=== PATIENT | male | born 1940 | race Caucasian/White ===

== ENCOUNTER 2017-05-23 22:27 | Inpatient (IN) ==
[2017-05-23] MEDS ORDERED: 0.9 % Sodium Chloride 1,000 ML IVC ONE (22:37)
--- NOTE | 2017-05-23 22:39 | Emergency Department Note ---
Disposition Clinical Impression: Sepsis Qualifiers: Sepsis type: sepsis due to unspecified organism Qualified Code(s): A41.9 - Sepsis, unspecified organism UTI (urinary tract infection) Qualifiers: Urinary tract infection type: acute cystitis Hematuria presence: without hematuria Qualified Code(s): N30.00 - Acute cystitis without hematuria Pneumonia Qualifiers: Pneumonia type: due to unspecified organism Laterality: right Lung location: lower lobe of lung Qualified Code(s): J18.1 - Lobar pneumonia, unspecified organism Altered mental state Qualifiers: Altered mental status type: transient alteration of awareness Qualified Code(s) : R40.4 - Transient alteration of awareness Disposition: Admitted As Inpatient Condition: Good Altered Mental Status HPI - General Chief Complaint: ED Fever Stated Complaint: fever Time Seen by Provider: 05/23/17 22:30 Source: family, EMS Mode of arrival: EMS Limitations: altered mental status, physical limitation Nursing Notes Reviewed: Yes Vital Signs Reviewed: Yes - History of Present Illness HPI Narrative: Patient reportedly had been mainly sleeping for the last 2 days. He has awakens to eats what he gets most of his nutrition through tube feed. He has had less responsiveness since about 9:00 tonight and the squad was called to have him brought in for evaluation. 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 He has reports of had a fever that was described as low-grade. His states she did take her temperature 102.8 at 5:00 but they used other thermometer and had a temperature 100.5. He has not had cough, per shortness of breath, nausea or vomiting. He has not had any type of diarrhea and has had his usual mild constipation. He has not had any type of fall, injury or illness exposure. He is nonambulatory and is written with his right-sided paralysis. His was concerned that he might have pneumonia. From her description he might have had a pneumonia couple weeks ago for which she has been off antibiotics for 2-3 weeks. complaint: altered mental status, decreased responsiveness Onset (ago): day(s) (2) Timing confirmed by: spouse, family member Pain Severity: none Consistency of Symptoms: getting worse Context: recent fever Associated symptoms: Reports: fever, loss of appetite, malaise, weakness. Denies: chest pain, cough, diaphoresis, chills, headaches, nausea/vomiting, rash , seizure, shortness of breath, syncope, foul smelling urine, difficulty walking , diarrhea, incontinence - Related Data Home Medications Medication Instructions Recorded Confirmed Aspirin [Adult Low Dose Aspirin EC] 81 mg PO DAILY 01/04/16 05/23/17 Cholecalciferol (Vitamin D3) 5,000 unit PO DAILY 01/04/16 05/23/17 [Vitamin D3] Esomeprazole Magnesium [Nexium] 40 mg PO DAILY 01/04/16 05/23/17 Levothyroxine [Synthroid] 75 mcg PO DAILY 01/04/16 05/23/17 Lisinopril [Zestril] 20 mg PO DAILY 01/04/16 05/23/17 Loratadine [Claritin] 10 mg PO DAILY 01/04/16 08/18/16 Metoprolol [Lopressor] 100 mg PO BID 01/04/16 05/23/17 Phenytoin Sodium Extended 300 mg PO QAM 01/04/16 08/18/16 Polyethylene Glycol 3350 [MiraLAX 1 scoop PO DAILY 01/04/16 08/18/16 Powder Bulk 17.9 Oz] traMADol [Ultram] 50 mg PO TID 01/04/16 05/23/17 Atorvastatin [Lipitor] 40 mg PO HS 08/18/16 05/23/17 Folic Acid 1 mg PO DAILY 08/18/16 05/23/17 Nitroglycerin [Nitrostat] 0.4 mg SL PRN PRN 08/18/16 08/18/16 Rivaroxaban [Xarelto] 20 mg PO QAM 08/18/16 05/23/17 Reglan 5 mg PO HS 05/23/17 05/23/17 Allergies Allergy/AdvReac Type Severity Reaction Status Date / Time gabapentin AdvReac Anaphylaxis Verified 05/23/17 22:36 iodine AdvReac Anaphylaxis Verified 05/23/17 22:36 Megestrol AdvReac Anaphylaxis Verified 05/23/17 22:36 All systems ED: reviewed and negative except as stated. Past Medical History - Past Medical History Source: old records reviewed, obtained from family, nursing notes reviewed Medical history: Reports: arthritis, CVA (Nonverbal with right-sided deficits), seizures, thyroid disease Surgical history: Reports: orthopedic, other Psychiatric history: Reports: no psych history - Social History Smoking Status: Current every day smoker Smokeless Tobacco Status: No Alcohol use: Reports: none Drug use: Reports: none Physical Exam - General Limitations: altered mental status, physical limitation General appearance: lethargic (Patient staring straight ahead with irregular respirations.) - Head Head exam: atraumatic, normocephalic, normal inspection - Eye Eye exam: Present: PERRL. Absent: scleral icterus, conjunctival injection - ENT ENT exam: normal exam, normal oropharynx, other (Mucous membranes are mildly dry.) - Neck Neck exam: Present: normal inspection, trachea midline. Absent: meningismus, lymphadenopathy - Chest Chest inspection: Present: normal inspection, symmetric chest wall rise, other ( Irregular respiration with occasional pauses. His indicates that this is a typical pattern for him.) - Respiratory Respiratory exam: Present: normal lung sounds bilaterally. Absent: wheezes, prolonged expiratory phase - Cardiovascular Cardiovascular exam: Present: regular rate, normal rhythm, normal heart sounds. Absent: tachycardia - Abdominal Exam Abdominal exam: Present: soft, Non-Tender, normal bowel sounds, other (G-tube is in place.). Absent: tenderness, distention, guarding, rebound, rigidity - Extremities Exam Extremities exam: Present: normal inspection, normal capillary refill. Absent: tenderness, pedal edema - Expanded Lower Extremity Exam Neurovascular/Tendon exam: Present: normal capillary refill Gait: not tested/not observed - Neurological Exam Neurological exam: Absent: alert, oriented X3 - Psychiatric Psychiatric exam: Present: flat affect, other (Patient staring but becomes a little brighter in his eyes and eye opening with stimulation.) - Skin Skin exam: Present: warm, dry, intact, pallor. Absent: cyanosis, diaphoresis Course Course Narrative: 0030: Care is been discussed with the patient's family and with Dr. Campbell. Verbal orders are obtained for the patient's hospitalization. Vital Signs Temperature 97.0 F L 05/23/17 22:28 Pulse Rate 65 05/23/17 22:28 Respiratory Rate 14 05/23/17 22:28 Blood Pressure 144/75 05/23/17 22:28 O2 Sat by Pulse Oximetry 100 05/23/17 22:28 Temperature 100.2 F H 05/24/17 02:38 Pulse Rate 71 05/24/17 02:38 Respiratory Rate 14 05/24/17 02:38 Blood Pressure 161/60 05/24/17 02:38 O2 Sat by Pulse Oximetry 97 05/24/17 02:38 Oxygen Delivery Oxygen Delivery Room Air Altered Mental Status - Differential Diagnosis Likely: altered mental status, delirium, dementia, hypoglycemia, hyponatremia, sepsis - Lab Data Lab results reviewed: Yes I reviewed the patient's lab results. Result diagrams: 05/23/17 22:55 05/23/17 22:55 Lab Results 05/23/17 05/23/17 05/23/17 Range/Units 22:55 22:55 22:55 WBC 18.6 H (4.3-11.1) K/mcL RBC 4.53 (4.19-5.50) M/mcL Hgb 13.7 (12.9-16.9) g/dL Hct 39.8 (37.5-50.1) % MCV 87.9 (83.0-100.0) fL MCH 30.2 (28.0-33.3) pg MCHC 34.4 (31.6-35.5) g/dL RDW 14.4 (11.5-14.5) % Plt Count 270 (140-400) K/mcL MPV 9.8 (9.4-12.4) fL Immature Gran % 0.6 (0-4) % Seg Neutrophils % 83.0 % Lymphocytes % 7.7 % Monocytes % 8.3 % Eosinophils % 0.1 % Basophils % 0.3 % Neutrophils # 15.4 H (1.6-8.9) K/mcL Lymphocytes # 1.4 (0.6-4.6) K/mcL Monocytes # 1.5 H (0.0-1.3) K/mcL Eosinophils # 0.0 (0.0-0.6) K/mcL Basophils # 0.1 (0.0-0.2) K/mcL PT 18.4 H (9.4-12.1) Seconds INR 1.7 APTT 35.0 (26.0-36.0) Seconds Sodium 135 L (136-145) mEq/L Potassium 4.0 (3.5-4.5) mEq/L Chloride 101 (98-109) mEq/L Carbon Dioxide 21 (19-29) mEq/L BUN 17 (8-26) mg/dL Creatinine 1.12 (0.72-1.25) mg/dL Est GFR ( Amer) > 60 (> 60) Est GFR (Non-Af Amer) > 60 (> 60) BUN/Creatinine Ratio 15 (6-26) Glucose 133 H (70-99) mg/dL Calculated Osmolality 283 (280-300) Calcium 9.1 (8.6-10.8) mg/dL Total Bilirubin 0.6 (0.2-1.2) mg/dL Direct Bilirubin 0.4 (0.0-0.5) mg/dL Indirect Bilirubin 0.2 (0.0-1.2) mg/dL AST 19 (5-34) Units/L ALT 15 (0-55) Units/L Alkaline Phosphatase 106 (38-126) Units/L Ammonia (18-72) mcmol/L Troponin I (0-0.03) ng/mL Serum Total Protein 7.2 (6.0-8.3) g/dL Albumin 2.7 L (3.5-5.0) g/dL Globulin 4.5 H (2.4-3.5) g/dL Albumin/Globulin Ratio 0.6 L (1.1-2.2) Urine Color (Yellow) Urine Clarity (Clear) Urine pH (5.0-8.0) pH Units Ur Specific [place] (1.010-1.025) Urine Protein (Neg-Trace) mg/dL Urine Glucose (UA) (Normal) mg/dL Urine Ketones (Negative) mg/dL Urine Blood (Negative) Urine Nitrite (Negative) Urine Bilirubin (Negative) Urine Urobilinogen (Normal) mg/dL Ur Leukocyte Esterase (Negative) Urine Microscopic RBC (0-3) per hpf Urine Microscopic WBC (0-3) per hpf Urine Bacteria (None-Few) per hpf Ur Culture Indicated? (NO) Urine Opiates Screen (Hjfvop=441) ng/mL Ur Oxycodone Screen (Cutoff= 100) ng/mL Ur Barbiturates Screen (Fajywk=790) ng/mL Phenytoin (10-20) mcg/mL Ur Phencyclidine Scrn (Cutoff=25) ng/mL Ur Amphetamines Screen (Vdsywu=0572) ng/mL U Benzodiazepines Scrn (Gpbdmw=069) ng/mL Urine Cocaine Screen (Cutoff= 300) ng/mL U Marijuana (THC) Screen (Cutoff = 50) ng/mL 08/03/17 08/03/17 08/03/17 Range/Units 22:55 22:55 22:55 WBC (4.3-11.1) K/mcL RBC (4.19-5.50) M/mcL Hgb (12.9-16.9) g/dL Hct (37.5-50.1) % MCV (83.0-100.0) fL MCH (28.0-33.3) pg MCHC (31.6-35.5) g/dL RDW (11.5-14.5) % Plt Count (140-400) K/mcL MPV (9.4-12.4) fL Immature Gran % (0-4) % Seg Neutrophils % % Lymphocytes % % Monocytes % % Eosinophils % % Basophils % % Neutrophils # (1.6-8.9) K/mcL Lymphocytes # (0.6-4.6) K/mcL Monocytes # (0.0-1.3) K/mcL Eosinophils # (0.0-0.6) K/mcL Basophils # (0.0-0.2) K/mcL PT (9.4-12.1) Seconds INR APTT (26.0-36.0) Seconds Sodium (136-145) mEq/L Potassium (3.5-4.5) mEq/L Chloride (98-109) mEq/L Carbon Dioxide (19-29) mEq/L BUN (8-26) mg/dL Creatinine (0.72-1.25) mg/dL Est GFR ( Amer) (> 60) Est GFR (Non-Af Amer) (> 60) BUN/Creatinine Ratio (6-26) Glucose (70-99) mg/dL Calculated Osmolality (280-300) Calcium (8.6-10.8) mg/dL Total Bilirubin (0.2-1.2) mg/dL Direct Bilirubin (0.0-0.5) mg/dL Indirect Bilirubin (0.0-1.2) mg/dL AST (5-34) Units/L ALT (0-55) Units/L Alkaline Phosphatase (38-126) Units/L Ammonia 29 (18-72) mcmol/L Troponin I 0.02 (0-0.03) ng/mL Serum Total Protein (6.0-8.3) g/dL Albumin (3.5-5.0) g/dL Globulin (2.4-3.5) g/dL Albumin/Globulin Ratio (1.1-2.2) Urine Color (Yellow) Urine Clarity (Clear) Urine pH (5.0-8.0) pH Units Ur Specific [place] (1.010-1.025) Urine Protein (Neg-Trace) mg/dL Urine Glucose (UA) (Normal) mg/dL Urine Ketones (Negative) mg/dL Urine Blood (Negative) Urine Nitrite (Negative) Urine Bilirubin (Negative) Urine Urobilinogen (Normal) mg/dL Ur Leukocyte Esterase (Negative) Urine Microscopic RBC (0-3) per hpf Urine Microscopic WBC (0-3) per hpf Urine Bacteria (None-Few) per hpf Ur Culture Indicated? (NO) Urine Opiates Screen (Ttxkzd=385) ng/mL Ur Oxycodone Screen (Cutoff= 100) ng/mL Ur Barbiturates Screen (Yiwlch=721) ng/mL Phenytoin 17.4 (10-20) mcg/mL Ur Phencyclidine Scrn (Cutoff=25) ng/mL Ur Amphetamines Screen (Mllpdd=1677) ng/mL U Benzodiazepines Scrn (Mepxmp=330) ng/mL Urine Cocaine Screen (Cutoff= 300) ng/mL U Marijuana (THC) Screen (Cutoff = 50) ng/mL 05/23/17 05/23/17 Range/Units 23:16 23:16 WBC (4.3-11.1) K/mcL RBC (4.19-5.50) M/mcL Hgb (12.9-16.9) g/dL Hct (37.5-50.1) % MCV (83.0-100.0) fL MCH (28.0-33.3) pg MCHC (31.6-35.5) g/dL RDW (11.5-14.5) % Plt Count (140-400) K/mcL MPV (9.4-12.4) fL Immature Gran % (0-4) % Seg Neutrophils % % Lymphocytes % % Monocytes % % Eosinophils % % Basophils % % Neutrophils # (1.6-8.9) K/mcL Lymphocytes # (0.6-4.6) K/mcL Monocytes # (0.0-1.3) K/mcL Eosinophils # (0.0-0.6) K/mcL Basophils # (0.0-0.2) K/mcL PT (9.4-12.1) Seconds INR APTT (26.0-36.0) Seconds Sodium (136-145) mEq/L Potassium (3.5-4.5) mEq/L Chloride (98-109) mEq/L Carbon Dioxide (19-29) mEq/L BUN (8-26) mg/dL Creatinine (0.72-1.25) mg/dL Est GFR ( Amer) (> 60) Est GFR (Non-Af Amer) (> 60) BUN/Creatinine Ratio (6-26) Glucose (70-99) mg/dL Calculated Osmolality (280-300) Calcium (8.6-10.8) mg/dL Total Bilirubin (0.2-1.2) mg/dL Direct Bilirubin (0.0-0.5) mg/dL Indirect Bilirubin (0.0-1.2) mg/dL AST (5-34) Units/L ALT (0-55) Units/L Alkaline Phosphatase (38-126) Units/L Ammonia (18-72) mcmol/L Troponin I (0-0.03) ng/mL Serum Total Protein (6.0-8.3) g/dL Albumin (3.5-5.0) g/dL Globulin (2.4-3.5) g/dL Albumin/Globulin Ratio (1.1-2.2) Urine Color Dark Yellow (Yellow) Urine Clarity Clear (Clear) Urine pH 5.5 (5.0-8.0) pH Units Ur Specific [place] 1.020 (1.010-1.025) Urine Protein >=300 H (Neg-Trace) mg/dL Urine Glucose (UA) Normal (Normal) mg/dL Urine Ketones Trace H (Negative) mg/dL Urine Blood Large H (Negative) Urine Nitrite Negative (Negative) Urine Bilirubin Small H (Negative) Urine Urobilinogen Normal (Normal) mg/dL Ur Leukocyte Esterase Small H (Negative) Urine Microscopic RBC 30-50 H (0-3) per hpf Urine Microscopic WBC 50-100 H (0-3) per hpf Urine Bacteria Moderate H (None-Few) per hpf Ur Culture Indicated? YES A (NO) Urine Opiates Screen Negative (Bcttla=184) ng/mL Ur Oxycodone Screen Negative (Cutoff= 100) ng/mL Ur Barbiturates Screen Negative (Ldszsy=795) ng/mL Phenytoin (10-20) mcg/mL Ur Phencyclidine Scrn Negative (Cutoff=25) ng/mL Ur Amphetamines Screen Negative (Nridsw=0353) ng/mL U Benzodiazepines Scrn Negative (Fbjvar=669) ng/mL Urine Cocaine Screen Negative (Cutoff= 300) ng/mL U Marijuana (THC) Screen Negative (Cutoff = 50) ng/mL - Radiology Data Radiology results reviewed: Yes I reviewed the patient's radiology results. Chest x-ray has lateral ectasis or infiltrate in the right base. No other acute abnormality is seen. This is on my interpretation. CT head demonstrates a large left-sided chronic ischemic injury without other acute abnormalities seen. This is on my interpretation. Radiologist impression: 1. No acute intracranial abnormality 2. Stable large volume left MCA and small volume right MCA territorial encephalomalacia. 3. Stable severe chronic white matter microvascular ischemic changes. 4. Unchanged left mastoid effusion. Impressions Chest X-Ray 05/23/17 22:37 IMPRESSION: New small layering pleural effusion with right base opacity may reflect atelectasis or pneumonia given patient's history of fever. D/ / Percy Gunter MD / Percy Gunter MD Interpreting Provider: Percy Gunter MD - EKG Data EKG attestation: Yes I reviewed and interpreted this EKG. EKG shows normal: sinus rhythm, axis, intervals, QRS complexes [place]/QRS: RBBB (Incomplete) T wave inversions: v1, v2, v3, v4, v5 Interpretation: no acute changes, nonspecific ST-T wave changes TPA Checklist - LKW: 3-4.5 hrs Add. Warnings/Precautions Patient/family understanding: The patient/family members have been counseled and understood the risk, benefit , and alternatives of treatment. Critical Care Time Critical Care Time: Yes Total Critical Care Time: 60 Attestation: As this patient did present with signs and symptoms of potential life- threatening illness requiring my urgent intervention, total critical care time in this patient's care has been 60 minutes, not withstanding separately reportable procedures.
[2017-05-23 23:06] LABS: Basophils # 0.1 K/mcL (0.0-0.2); Basophils % 0.3 %; Eosinophils % 0.1 %; Hematocrit 39.8 % (37.5-50.1); Hemoglobin 13.7 g/dL (12.9-16.9); Immature Granulocytes % 0.6 % (0-4); Lymphocytes # 1.4 K/mcL (0.6-4.6); Lymphocytes % 7.7 %; Mean Corpuscular HGB Conc 34.4 g/dL (31.6-35.5); Mean Corpuscular Hemoglobin 30.2 pg (28.0-33.3); Mean Corpuscular Volume 87.9 fL (83.0-100.0); Mean Platelet Volume 9.8 fL (9.4-12.4); Monocytes % 8.3 %; Neutrophils # 15.4 K/mcL (1.6-8.9); Platelet Count 270 K/mcL (140-400); Red Blood Count 4.53 M/mcL (4.19-5.50); Red Cell Distribution Width 14.4 % (11.5-14.5)
[2017-05-23 23:12] LABS: INR 1.7; Monocytes # 1.5 K/mcL (0.0-1.3); Prothrombin Time 18.4 Seconds (9.4-12.1)
[2017-05-23 23:24] LABS: Alanine Aminotransferase 15 Units/L (0-55); Albumin 2.7 g/dL (3.5-5.0); Albumin/Globulin Ratio 0.6 (1.1-2.2); Alkaline Phosphatase 106 Units/L (38-126); Aspartate Amino Transferase 19 Units/L (5-34); BUN/Creatinine Ratio 15 (6-26); Bilirubin,Direct 0.4 mg/dL (0.0-0.5); Bilirubin,Indirect 0.2 mg/dL (0.0-1.2); Bilirubin,Total 0.6 mg/dL (0.2-1.2); Blood Urea Nitrogen 17 mg/dL (8-26); Calcium 9.1 mg/dL (8.6-10.8); Carbon Dioxide 21 mEq/L (19-29); Chloride 101 mEq/L (98-109); Globulin 4.5 g/dL (2.4-3.5); Glucose 133 mg/dL (70-99); Osmolality,Calculated 283 (280-300); Sodium 135 mEq/L (136-145); Total Protein 7.2 g/dL (6.0-8.3); eGFR For African Americans > 60 (> 60); eGFR For Non-African Americans > 60 (> 60)
[2017-05-23 23:30] LABS: Bilirubin,Urine Small (Negative); Blood,Urine Large (Negative); Clarity,Urine Clear (Clear); Glucose,Urine (UA) Normal (Normal); Ketones,Urine Trace mg/dL (Negative); Leukocyte Esterase,Urine Small (Negative); Nitrite,Urine Negative (Negative); PH,Urine 5.5 pH Units (5.0-8.0); Protein,Urine >=300 mg/dL (Neg-Trace); Urobilinogen,Urine Normal (Normal)
[2017-05-23 23:37] LABS: Amphetamine Screen,Urine Negative ng/mL (Cutoff=1000); Barbiturate Screen,Urine Negative ng/mL (Cutoff=200); Benzodiazepines Screen,Urine Negative ng/mL (Cutoff=200); Cannabinoid Screen,Urine Negative ng/mL (Cutoff = 50); Cocaine Screen,Urine Negative ng/mL (Cutoff= 300); Opiate Screen,Urine Negative ng/mL (Cutoff=300); Phencyclidine Screen,Urine Negative ng/mL (Cutoff=25)
[2017-05-23 23:42] LABS: Color,Urine Dark Yellow (Yellow)
[2017-05-23 23:43] LABS: Bacteria,Urine Moderate per hpf (None-Few); RBC,Urine 30-50 per hpf (0-3); WBC,Urine 50-100 per hpf (0-3)
[2017-05-24] MEDS ORDERED: Piperacillin/Tazobactam 3.375 GM in D5% in Water (Mini-Bag+) 100 ML IVPB ONE ×2 (00:08→01:19)
[2017-05-24] MEDS ORDERED: Vancomycin 1,000 MG in D5% in Water 250 ML IVPB ONE (00:08)
[2017-05-24] MEDS ORDERED: Ondansetron 4 MG/2 ML VIAL IVP PRN (01:19)
[2017-05-24] MEDS ORDERED: Naloxone 0.4 MG/ML INJ IVP PRN (01:19)
[2017-05-24] MEDS: 0.9 % Sodium Chloride 1,000 ML IVC SCH ×3 (02:49→15:54)
[2017-05-24] MEDS: *HR* Rivaroxaban 10 MG TABLET PO SCH (08:29)
[2017-05-24] MEDS: Lisinopril 20 MG TABLET PO SCH (08:29)
[2017-05-24] MEDS: Aspirin Enteric Coated 81 MG Tablet PO SCH (08:30)
[2017-05-24] MEDS: Pantoprazole 40 MG VIAL IVP SCH (08:33)
[2017-05-24] MEDS ORDERED: Folic Acid 1 MG TABLET PO SCH (09:00)
[2017-05-24] MEDS ORDERED: Vancomycin 1,250 MG in D5% in Water 250 ML IVPB SCH (09:00)
--- NOTE | 2017-05-24 10:00 | Internal Med History&Physical ---
Date of Encounter: 05/24/17 Time of Encounter: 09:35 Assessment and Plan (1) UTI (urinary tract infection) Current visit: Yes Status: Acute He has been started on Zosyn and vancomycin. Lactobacillus will be ordered. Further workup will be done as needed. Qualifiers: Urinary tract infection type: acute cystitis Hematuria presence: without hematuria Qualified Code(s): N30.00 - Acute cystitis without hematuria (2) Altered mental state Current visit: Yes Status: Acute I do not know his baseline mental status. Attempt to contact his son was unsuccessful. We will treat for infection and monitor mental status. Qualifiers: Altered mental status type: stupor Qualified Code(s): R40.1 - Stupor (3) Right hemiplegia Current visit: Yes Status: Acute Head CT emergency room showed no acute changes. Continue Xarelto and aspirin. (4) Hypothyroidism Current visit: Yes Status: Chronic TSH was normal at 4.132 on 12/17/2016. Continue present dose Synthroid Qualifiers: Hypothyroidism type: unspecified Qualified Code(s): E03.9 - Hypothyroidism , unspecified (5) Hypertension Current visit: Yes Status: Chronic Continue lisinopril and metoprolol. Qualifiers: Hypertension type: essential hypertension Qualified Code(s): I10 - Essential (primary) hypertension Internal Medicine - H&P: HPI Chief complaint: Lethargy Admitted From: Home Plans for Post Hospital Care: Home History of present illness: Mr. Merchant is a 77 year old male was brought to the emergency room after his reportedly noted he had decreased level of consciousness over the last 2 days. 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 He had fever 102.8 earlier in the day per his 's report. Temperature was 97.0 on presentation to emergency room but WBC was 18.6 K with left shift present on differential. He was evaluated and admitted to [facility] floor for ongoing care needs. Past Med Surg Social Fam HX - Past Medical History Medical history: arthritis, CVA, seizures, thyroid disease Psychiatric history: no psych history - Past Surgical History Surgical History: orthopedic, other - Social History Smoking Status: Current every day smoker Smokeless Tobacco Status: No Alcohol use: none Drug use: none Internal Medicine - H&P: Meds Aspirin [Adult Low Dose Aspirin EC] 81 mg PO DAILY 01/04/16 [History] Cholecalciferol (Vitamin D3) [Vitamin D3] 5,000 unit PO DAILY 01/04/16 [History] Esomeprazole Magnesium [Nexium] 40 mg PO DAILY 01/04/16 [History] Levothyroxine [Synthroid] 75 mcg PO DAILY 01/04/16 [History] Lisinopril [Zestril] 20 mg PO DAILY 01/04/16 [History] Loratadine [Claritin] 10 mg PO DAILY 01/04/16 [History] Metoprolol [Lopressor] 100 mg PO BID 01/04/16 [History] Phenytoin Sodium Extended 300 mg PO QAM 01/04/16 [History] Polyethylene Glycol 3350 [MiraLAX Powder Bulk 17.9 Oz] 1 scoop PO DAILY [History] traMADol [Ultram] 50 mg PO TID 01/04/16 [History] Atorvastatin [Lipitor] 40 mg PO HS 08/18/16 [History] Folic Acid 1 mg PO DAILY 08/18/16 [History] Nitroglycerin [Nitrostat] 0.4 mg SL PRN PRN 08/18/16 [History] Rivaroxaban [Xarelto] 20 mg PO QAM 08/18/16 [History] Reglan 5 mg PO HS 05/23/17 [History] Allergies gabapentin Adverse Reaction (Verified 05/23/17 22:36) Anaphylaxis iodine Adverse Reaction (Verified 05/23/17 22:36) Anaphylaxis Megestrol Adverse Reaction (Verified 05/23/17 22:36) Anaphylaxis All Systems PM: A 10-system review of systems was performed and is negative for pertinent findings except as documented above in the HPI. Review of systems: Unobtainable from the patient. Emergency room record reports diagnoses arthritis, CVA with right sophie-plegic, seizures, and thyroid disease not otherwise specified. Nursing staff reports he has had a right leg DVT and is on Xarelto for this. - Constitutional Vitals: Temp Pulse Resp BP Pulse Ox 98.0 F 69 16 153/79 99 05/24/17 06:40 05/24/17 06:40 05/24/17 06:40 05/24/17 06:40 05/24/17 06:40 Exam: Gen.: He is a well-developed well-nourished male lying in bed who does not respond to voice or light touch HEENT: Head is atraumatic and normal cephalic. Eyes: His gaze is disconjugate. There is mild conjunctival erythema. Mouth: He does not open his mouth for examination. Neck: There is no thyromegaly or adenopathy noted. Heart: Regular without murmurs gallops or ectopics Lungs: No wheezes or crackles are heard anteriorly or laterally Abdomen: G-tube is in place in the epigastric area. The G-tube site is unremarkable. Abdomen is soft and nontender. No masses or guarding are noted. Extremities: He is wearing VESNA hose which I did not remove. There is no pitting edema on his lower legs or dorsum of the feet. He has minimal DJD changes of his hands. Neurologic: Mental status: He is obtunded and does not respond to voice or light touch. Motor: He does not move his right side. The left hand moves minimally spontaneously. The right arm is flaccid on passive range of motion. The left arm has some muscle tone on PROM. No further neurologic testing is attempted. Skin: Warm and dry Internal Med - H&P Results - Labs CBC & Chem 7: 05/23/17 22:55 05/23/17 22:55 - VTE Documentation of Mechanical Device: Graduated compression elastic hosiery
--- NOTE | 2017-05-24 11:44 | Electrocardiograph Report ---
[address] [address] Test Date: 2017-05-23 Pat Name: Niels Merchant Department: [id number] Room: [facility] Gender: M Evaluation Manager: [id number] : 1940 Requested By: Jabari Garcia Order Number: [id number] Reading MD: Vazquez Almonte Measurements Intervals [place] Rate: 61 P: 100 [place]: 195 QRS: -11 QRSD: 112 T: 95 QT: 423 QTc: 427 Interpretive Statements SINUS RHYTHM INCOMPLETE RIGHT BUNDLE BRANCH BLOCK ST DEVIATION AND MODERATE T-WAVE ABNORMALITY, CONSIDER ANTERIOR ISCHEMIA Electronically Signed On 05-24-2017 11:42:27 EDT by Vazquez Almonte
[2017-05-24] MEDS: Piperacillin/Tazobactam 3.375 GM in D5% in Water (Mini-Bag+) 100 ML IVPB SCH ×2 (13:53→21:20)
[2017-05-24] MEDS ORDERED: Vancomycin 1,000 MG in D5% in Water 250 ML IVPB SCH (18:00)
[2017-05-24] MEDS ORDERED: Vancomycin 1,500 MG in D5% in Water 250 ML IVPB SCH (18:00)
[2017-05-24] MEDS: Lactobacillus 1 EACH CAP.SPRINK PO SCH (21:19)
[2017-05-25] MEDS: 0.9 % Sodium Chloride 1,000 ML IVC SCH (02:53)
[2017-05-25 04:27] LABS: Basophils % 0.5 %; Eosinophils # 0.3 K/mcL (0.0-0.6); Hematocrit 40.1 % (37.5-50.1); Hemoglobin 13.5 g/dL (12.9-16.9); Immature Granulocytes % 0.6 % (0-4); Lymphocytes # 1.3 K/mcL (0.6-4.6); Lymphocytes % 15.7 %; Mean Corpuscular HGB Conc 33.7 g/dL (31.6-35.5); Mean Corpuscular Hemoglobin 30.5 pg (28.0-33.3); Mean Corpuscular Volume 90.7 fL (83.0-100.0); Mean Platelet Volume 9.9 fL (9.4-12.4); Monocytes # 0.7 K/mcL (0.0-1.3); Monocytes % 7.6 %; Neutrophils # 6.1 K/mcL (1.6-8.9); Platelet Count 185 K/mcL (140-400); Red Blood Count 4.42 M/mcL (4.19-5.50); Red Cell Distribution Width 14.6 % (11.5-14.5); Segmented Neutrophils % 71.6 %
[2017-05-25 04:42] LABS: BUN/Creatinine Ratio 17 (6-26); Blood Urea Nitrogen 15 mg/dL (8-26); Calcium 8.7 mg/dL (8.6-10.8); Carbon Dioxide 14 mEq/L (19-29); Chloride 108 mEq/L (98-109); Glucose 97 mg/dL (70-99); Osmolality,Calculated 283 (280-300); Potassium 3.2 mEq/L (3.5-4.5); Sodium 136 mEq/L (136-145); eGFR For African Americans > 60 (> 60); eGFR For Non-African Americans > 60 (> 60)
[2017-05-25] MEDS: Piperacillin/Tazobactam 3.375 GM in D5% in Water (Mini-Bag+) 100 ML IVPB SCH ×3 (05:31→20:13)
[2017-05-25] MEDS ORDERED: Aminoglycoside Consult 1 EACH MC ONE (08:00)
[2017-05-25] MEDS ORDERED: Vancomycin 1,000 MG in D5% in Water 250 ML IVPB SCH (08:00)
[2017-05-25] MEDS: Aspirin Enteric Coated 81 MG Tablet PO SCH (08:45)
[2017-05-25] MEDS: *HR* Rivaroxaban 10 MG TABLET PO SCH (08:46)
[2017-05-25] MEDS: Pantoprazole 40 MG VIAL IVP SCH (09:03)
[2017-05-25] MEDS: Lisinopril 20 MG TABLET PO SCH (09:03)
[2017-05-25] MEDS: Lactobacillus 1 EACH CAP.SPRINK PO SCH ×2 (09:03→20:12)
--- NOTE | 2017-05-25 14:33 | Internal Med Progress Note ---
Date of Encounter: 05/25/17 Time of Encounter: 14:25 - Assessment and plan (1) UTI (urinary tract infection) Current Visit: Yes Status: Acute Assessment and plan: May 25. Final urine culture and sensitivity is pending. Will discontinue vancomycin but continue Zosyn for now with lactobacillus. Anticipate discharge home tomorrow. Qualifiers: Urinary tract infection type: acute cystitis Hematuria presence: without hematuria Qualified Code(s): N30.00 - Acute cystitis without hematuria (2) Altered mental state Current Visit: Yes Status: Resolved Assessment and plan: May 25. Resolved. Continue present management Qualifiers: Altered mental status type: stupor Qualified Code(s): R40.1 - Stupor (3) Right hemiplegia Current Visit: Yes Status: Acute Assessment and plan: May 25. Continue Xarelto and aspirin (4) Hypothyroidism Current Visit: Yes Status: Chronic Assessment and plan: May 25. Continue Synthroid Qualifiers: Hypothyroidism type: unspecified Qualified Code(s): E03.9 - Hypothyroidism , unspecified (5) Hypertension Current Visit: Yes Status: Chronic Assessment and plan: May 25. Continue lisinopril and metoprolol. Qualifiers: Hypertension type: essential hypertension Qualified Code(s): I10 - Essential (primary) hypertension - Subjective Interval history: May 25. He has no new complaints and feels better. - Constitutional Vitals: Temp Pulse Resp BP Pulse Ox 98.6 F 66 16 128/80 99 05/25/17 10:45 05/25/17 10:45 05/25/17 10:45 05/25/17 10:45 05/25/17 10:45 Exam: He is resting comfortably in bed. He is awake with eyes open. He nods appropriately and makes an attempt to speak but has significant dysarthria/ dysphasia. I reviewed his medications and lab results Internal Medicine: Result - Labs CBC & Chem 7: 05/25/17 04:10 05/25/17 04:10 Labs: Short CBC 05/25/17 Range/Units 04:10 WBC 8.5 D (4.3-11.1) K/mcL Hgb 13.5 (12.9-16.9) g/dL Hct 40.1 (37.5-50.1) % Plt Count 185 (140-400) K/mcL Neutrophils # 6.1 (1.6-8.9) K/mcL BMP 05/25/17 04:10 Sodium 136 Potassium 3.2 L Chloride 108 Carbon Dioxide 14 L BUN 15 Creatinine 0.88 Glucose 97 Calcium 8.7 - ABG Interpretation ABG results: PT/INR, D-dimer PT 18.4 Seconds (9.4-12.1) H 05/23/17 22:55 - VTE Documentation of Mechanical Device: Graduated compression elastic hosiery Consult Discharge Plan - Plan Referrals: Daryn Valdez MD [Primary Care Provider] - 1 week
[2017-05-25] MEDS ORDERED: Potassium Chloride Elixir 20 MEQ/15 ML UDC GTUBE ONE (14:35)
[2017-05-26] MEDS: Piperacillin/Tazobactam 3.375 GM in D5% in Water (Mini-Bag+) 100 ML IVPB SCH (06:34)
[2017-05-26 07:25] VITALS: BP 126/72
[2017-05-26] MEDS: Lactobacillus 1 EACH CAP.SPRINK PO SCH (08:34)
[2017-05-26] MEDS: *HR* Rivaroxaban 10 MG TABLET PO SCH (08:34)
[2017-05-26] MEDS: Lisinopril 20 MG TABLET PO SCH (08:34)
[2017-05-26] MEDS: Aspirin Enteric Coated 81 MG Tablet PO SCH (08:34)
--- NOTE | 2017-05-26 09:35 | Discharge Summary ---
Date of Encounter: 05/26/17 Time of Encounter: 09:20 - Discharge Diagnosis (1) UTI (urinary tract infection) Priority: Primary Status: Acute Qualifiers: Urinary tract infection type: acute cystitis Hematuria presence: without hematuria Qualified Code(s): N30.00 - Acute cystitis without hematuria (2) Altered mental state Priority: Secondary Status: Resolved Qualifiers: Altered mental status type: stupor Qualified Code(s): R40.1 - Stupor (3) Right hemiplegia Priority: Secondary Status: Chronic (4) Hypothyroidism Priority: Secondary Status: Chronic Qualifiers: Hypothyroidism type: unspecified Qualified Code(s): E03.9 - Hypothyroidism , unspecified (5) Hypertension Priority: Secondary Status: Chronic Qualifiers: Hypertension type: essential hypertension Qualified Code(s): I10 - Essential (primary) hypertension - Discharge Medications Prescriptions: Lactobacillus [Culturelle] 1 each PO BID #10 Nitrofurantoin (BID) [Macrobid] 100 mg PO BID #10 capsule Home Medications: Aspirin [Adult Low Dose Aspirin EC] 81 mg PO DAILY 01/04/16 [History] Cholecalciferol (Vitamin D3) [Vitamin D3] 5,000 unit PO DAILY 01/04/16 [History] Esomeprazole Magnesium [Nexium] 40 mg PO DAILY 01/04/16 [History] Levothyroxine [Synthroid] 75 mcg PO DAILY 01/04/16 [History] Lisinopril [Zestril] 20 mg PO DAILY 01/04/16 [History] Metoprolol [Lopressor] 100 mg PO BID 01/04/16 [History] Phenytoin Sodium Extended 300 mg PO QAM 01/04/16 [History] Polyethylene Glycol 3350 [MiraLAX Powder Bulk 17.9 Oz] 1 scoop PO DAILY [History] traMADol [Ultram] 50 mg PO TID 01/04/16 [History] Atorvastatin [Lipitor] 40 mg PO HS 08/18/16 [History] Folic Acid 1 mg PO DAILY 08/18/16 [History] Nitroglycerin [Nitrostat] 0.4 mg SL PRN PRN 08/18/16 [History] Rivaroxaban [Xarelto] 20 mg PO QAM 08/18/16 [History] Reglan 5 mg PO HS 05/23/17 [History] Lactobacillus [Culturelle] 1 each PO BID #10 05/26/17 [Rx] Loratadine [Claritin] 10 mg PO DAILY PRN #0 05/26/17 [Rx] Nitrofurantoin (BID) [Macrobid] 100 mg PO BID #10 capsule 05/26/17 [Rx] Allergies/Adverse Reactions: Allergies gabapentin Adverse Reaction (Verified 05/23/17 22:36) Anaphylaxis iodine Adverse Reaction (Verified 05/23/17 22:36) Anaphylaxis Megestrol Adverse Reaction (Verified 05/23/17 22:36) Anaphylaxis Date of admission: 05/24/17 01:09 Primary care physician: Daryn Valdez MD - Patient Status Disposition: Home Health Service Condition: Good Functional capacity at discharge: wheelchair bound Overall status at discharge: patient is progressing back to baseline - Discharge Instructions Follow Up With: Daryn Valdez MD [Primary Care Provider] - 1 week - Diet and Activity Activity: resume usual activities as tolerated Diet: advance to your usual diet Hospital course: Mr. Merchant is a 77 year old male who was brought to the emergency room after his reportedly noted he had decreased level of consciousness over the last 2 days. 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 He had fever 102.8 earlier in the day per his 's report. Temperature was 97.0 on presentation to emergency room but WBC was 18.6 K with left shift present on differential. He was evaluated and admitted to [facility] floor for ongoing care needs. Initial orders were written by the emergency room physician. I saw him on May 24 and performed the history and physical. He was started empirically on Zosyn and vancomycin. Lactobacillus was also given. He had clinical improvement with WBC normalizing to 8.5K and resolution of the left shift by May 25. Urine culture returned showing Escherichia coli. He will be discharged home on Macrobid 100 mg twice a day for 5 days with Lactobacillus. His mental status returned to baseline by the second hospital day. He will follow with his PCP Dr. Daryn Valdez within 1 week. - Time Spent with Patient Total time spent providing and/or coordinating discharge services: - Constitutional Vitals: Temp Pulse Resp BP Pulse Ox 98.3 F 108 19 126/72 98 05/26/17 07:00 05/26/17 07:00 05/26/17 07:00 05/26/17 07:00 05/26/17 07:00 - VTE Documentation of Mechanical Device: Graduated compression elastic hosiery
--- NOTE | 2017-05-26 09:40 | Physician Discharge Referral ---
Home Health/Hosp Referral Info Transfer to: Home Health Attending Provider: Adrian Provider in Charge Post Discharge: PCP (Daryn Valdez M.D.) - Diagnosis (1) UTI (urinary tract infection) Priority: Primary Status: Acute (2) Altered mental state Priority: Secondary Status: Resolved (3) Right hemiplegia Priority: Secondary Status: Chronic (4) Hypothyroidism Priority: Secondary Status: Chronic (5) Hypertension Priority: Secondary Status: Chronic - Respiratory Orders Smoking Cessation: Smoking cessation has been advised. For more information, call the [place] Tobacco Quit Line at 3-948-FVZC-NOW. - Diet/Nutrition Diet/Nutrition Orders: Regular - Activity Activity Orders: Chair - Services Needed Following services are medically necessary services: Nursing, Home Health Aide, Physical Therapy, Occupational Therapy - Transfer Medications Prescriptions: Lactobacillus [Culturelle] 1 each PO BID #10 Nitrofurantoin (BID) [Macrobid] 100 mg PO BID #10 capsule Home Medications: Aspirin [Adult Low Dose Aspirin EC] 81 mg PO DAILY 01/04/16 [History] Cholecalciferol (Vitamin D3) [Vitamin D3] 5,000 unit PO DAILY 01/04/16 [History] Esomeprazole Magnesium [Nexium] 40 mg PO DAILY 01/04/16 [History] Levothyroxine [Synthroid] 75 mcg PO DAILY 01/04/16 [History] Lisinopril [Zestril] 20 mg PO DAILY 01/04/16 [History] Metoprolol [Lopressor] 100 mg PO BID 01/04/16 [History] Phenytoin Sodium Extended 300 mg PO QAM 01/04/16 [History] Polyethylene Glycol 3350 [MiraLAX Powder Bulk 17.9 Oz] 1 scoop PO DAILY [History] traMADol [Ultram] 50 mg PO TID 01/04/16 [History] Atorvastatin [Lipitor] 40 mg PO HS 08/18/16 [History] Folic Acid 1 mg PO DAILY 08/18/16 [History] Nitroglycerin [Nitrostat] 0.4 mg SL PRN PRN 08/18/16 [History] Rivaroxaban [Xarelto] 20 mg PO QAM 08/18/16 [History] Reglan 5 mg PO HS 05/23/17 [History] Lactobacillus [Culturelle] 1 each PO BID #10 08/06/17 [Rx] Loratadine [Claritin] 10 mg PO DAILY PRN #0 05/26/17 [Rx] Nitrofurantoin (BID) [Macrobid] 100 mg PO BID #10 capsule 05/26/17 [Rx] Allergies/Adverse Reactions: Allergies gabapentin Adverse Reaction (Verified 05/23/17 22:36) Anaphylaxis iodine Adverse Reaction (Verified 05/23/17 22:36) Anaphylaxis Megestrol Adverse Reaction (Verified 05/23/17 22:36) Anaphylaxis Certification: Further, I certify that my clinical findings support that this patient is homebound (i.e. absences from home require considerable and taxing effort and are for medical reasons or confucianist services or infrequently or short duration when for other reasons) because: Homebound Reason: Leaving home requires considerable and taxing effort due to condition (CVA with right hemiplegia) Attestation: My signature below is to certify that this patient is under my care and that I, or nurse practitioner, or a physician's assistant director of security working with me, has a face-to -face encounter with this patient.
== END 2017-05-26 10:35 | disposition home health service (06) | DRG 690 ==
LOC: EMEROOPIK 22:27 → INPPIK 22:27
PROVIDERS: ADMIT Internal Medicine; ATTEND Internal Medicine

== ENCOUNTER 2017-10-29 14:03 | Inpatient (IN) ==
[2017-10-29] MEDS ORDERED: 0.9 % Sodium Chloride 1,000 ML IVC ONE (14:06)
--- NOTE | 2017-10-29 14:10 | Emergency Department Note ---
Disposition Clinical Impression: UTI (urinary tract infection) Qualifiers: Urinary tract infection type: acute cystitis Hematuria presence: without hematuria Qualified Code(s): N30.00 - Acute cystitis without hematuria Altered mental status Qualifiers: Altered mental status type: somnolence Qualified Code(s): R40.0 - Somnolence Disposition: Admitted As Inpatient Condition: Fair Fever HPI - General Chief Complaint: ED General Medical Stated Complaint: GENERALIZED WEAKNESS, FEVER LAST NIGHT Time Seen by Provider: 10/29/17 14:05 Source: family, EMS Mode of arrival: EMS Limitations: physical limitation Nursing Notes Reviewed: Yes Vital Signs Reviewed: Yes - History of Present Illness HPI Narrative: The patient had been diagnosed as a left lower lobe pneumonia 1-2 weeks ago and has completed a course of antibiotics. He had been tested for the flu that was negative. He has continued with some shortness of breath and a fever last night to 103. Visiting nurse came today and she advised he should be seen by the family doctor. They tried to contact the transport squad to bring him to an appointment for 4 PM this afternoon but none were available. His states that they, therefore, called 911 for him to be brought here. The patient is able to shake his head yes or no to questions but otherwise is chronically nonverbal. states that he really has not been answering any questions in the last day and that he has been weak and congested. She states he really much slept all day yesterday and today. He has not been having nausea , vomiting, diarrhea. He has not had other ill exposures in the family. They have not noted any increased extremity swelling or redness. He has finished his course of antibiotics but has no other change in medicines. For EMS his oxygen was 96% on room air, and IV was established and he was started on 3 L by nasal cannula for transport. Pt Subjective Complaint: fever, malaise, weakness Onset (ago): day(s) (2) Maximum Temperature Reported: 103 F Temperature Source: oral Context: recent antibiotic use Associated symptoms: Reports: chills, cough, dyspnea, altered mental status. Denies: rigors, myalgias, headache, rhinorrhea, nasal congestion, sore throat, stiff neck, chest pain, abdominal pain, nausea, vomiting, diarrhea, dysuria, rash, night sweats, weight loss Improves with: acetaminophen Worsens with: nothing Treatments prior to arrival fever: acetaminophen, other healthcare encounter for this problem - Related Data Home Medications Medication Instructions Recorded Confirmed Aspirin [Adult Low Dose Aspirin EC] 81 mg PO DAILY 01/04/16 10/29/17 Cholecalciferol (Vitamin D3) 5,000 unit PO DAILY 01/04/16 10/29/17 [Vitamin D3] Esomeprazole Magnesium [Nexium] 40 mg PO DAILY 01/04/16 10/29/17 Levothyroxine [Synthroid] 75 mcg PO DAILY 01/04/16 10/29/17 Lisinopril [Zestril] 20 mg PO DAILY 01/04/16 10/29/17 Metoprolol [Lopressor] 100 mg PO BID 01/04/16 10/29/17 Phenytoin Sodium Extended 300 mg PO QAM 01/04/16 10/29/17 Polyethylene Glycol 3350 [MiraLAX 1 scoop PO DAILY PRN 01/04/16 10/29/17 Powder Bulk 17.9 Oz] traMADol [Ultram] 50 mg PO BID 01/04/16 10/29/17 Atorvastatin [Lipitor] 40 mg PO HS 08/18/16 10/29/17 Folic Acid 1 mg PO DAILY 08/18/16 10/29/17 Nitroglycerin [Nitrostat] 0.4 mg SL PRN PRN 08/18/16 10/29/17 Rivaroxaban [Xarelto] 20 mg PO QAM 08/18/16 10/29/17 Reglan 5 mg PO HS 05/23/17 10/29/17 Allergies Allergy/AdvReac Type Severity Reaction Status Date / Time gabapentin AdvReac Anaphylaxis Verified 05/23/17 22:36 iodine AdvReac Anaphylaxis Verified 05/23/17 22:36 Megestrol AdvReac Anaphylaxis Verified 05/23/17 22:36 All systems ED: reviewed and negative except as stated. Fever PMH - Past Medical History Medical history: Reports: arthritis, CVA, seizures, thyroid disease Surgical history: Reports: orthopedic, other Psychiatric history: Reports: no psych history - Social History Smoking Status: Current every day smoker Alcohol use: Reports: none Drug use: Reports: none Physical Exam - General Limitations: physical limitation General appearance: in no apparent distress - Head Head exam: atraumatic, normocephalic, normal inspection - Eye Eye exam: Present: normal appearance, PERRL, EOMI. Absent: scleral icterus, conjunctival injection - ENT ENT exam: normal exam, normal oropharynx, mucous membranes moist - Neck Neck exam: Present: normal inspection, full ROM, trachea midline. Absent: meningismus, lymphadenopathy - Chest Chest inspection: Present: normal inspection, symmetric chest wall rise - Respiratory Respiratory exam: Present: normal lung sounds bilaterally. Absent: respiratory distress, wheezes, prolonged expiratory phase - Cardiovascular Cardiovascular exam: Present: regular rate, normal rhythm, normal heart sounds. Absent: tachycardia - Abdominal Exam Abdominal exam: Present: soft, Non-Tender, normal bowel sounds. Absent: tenderness, distention, guarding, rebound, rigidity - Extremities Exam Extremities exam: Present: normal inspection, normal capillary refill. Absent: tenderness, pedal edema, calf tenderness - Expanded Lower Extremity Exam Neurovascular/Tendon exam: Present: normal capillary refill, motor deficit ( Chronic right sided deficits.) Gait: not tested/not observed - Neurological Exam Neurological exam: Absent: alert, oriented X3 - Psychiatric Psychiatric exam: Present: flat affect. Absent: agitated, anxious - Skin Skin exam: Present: warm, dry, intact, normal color. Absent: cyanosis, diaphoresis, pallor Course Course Narrative: 1620: All testing has been discussed with the patient and family. I recommended continue IV fluids, IV antibiotics and observation with regard to his mental status and weakness. A page has been placed to Dr. Campbell to discuss inpatient treatment. 1645: Dr. Campbell has accepted this patient in observation status. Verbal orders have been obtained for his observation. Vital Signs Temperature 98.5 F 10/29/17 14:18 Pulse Rate 64 10/29/17 14:18 Respiratory Rate 16 10/29/17 14:18 Blood Pressure 147/71 10/29/17 14:18 O2 Sat by Pulse Oximetry 100 10/29/17 14:18 Temperature 98.7 F 10/29/17 23:59 Pulse Rate 63 10/29/17 23:59 Respiratory Rate 18 10/29/17 23:59 Blood Pressure 134/69 10/29/17 23:59 O2 Sat by Pulse Oximetry 98 10/29/17 23:59 Oxygen Delivery Oxygen Delivery Nasal Cannula Fever - Lab Data Lab results reviewed: Yes I reviewed the patient's lab results. Result diagrams: 10/29/17 14:30 10/29/17 14:30 Lab Results 10/29/17 10/29/17 10/29/17 Range/Units 14:30 14:30 14:30 WBC 6.1 (4.3-11.1) K/mcL RBC 4.22 (4.19-5.50) M/mcL Hgb 12.7 L (12.9-16.9) g/dL Hct 37.5 (37.5-50.1) % MCV 88.9 (83.0-100.0) fL MCH 30.1 (28.0-33.3) pg MCHC 33.9 (31.6-35.5) g/dL RDW 14.5 (11.5-14.5) % Plt Count 210 (140-400) K/mcL MPV 10.0 (9.4-12.4) fL Immature Gran % 0.3 (0-4) % Seg Neutrophils % 72.8 % Lymphocytes % 12.3 % Monocytes % 11.3 % Eosinophils % 2.8 % Basophils % 0.5 % Neutrophils # 4.5 (1.6-8.9) K/mcL Lymphocytes # 0.8 (0.6-4.6) K/mcL Monocytes # 0.7 (0.0-1.3) K/mcL Eosinophils # 0.2 (0.0-0.6) K/mcL Basophils # 0.0 (0.0-0.2) K/mcL PT 13.8 H (9.4-12.1) Seconds INR 1.3 APTT 31.0 (26.0-36.0) Seconds Sample Site ABG pH (7.32-7.45) pH Units ABG pCO2 (35-45) mmHg ABG pO2 (85-104) mmHg ABG HCO3 (21-27) mEq/L ABG Total CO2 (20-26) mEq/L ABG O2 Saturation (95-98) % ABG Base Excess (-2 to 3) mEq/L Mariano Test O2 Delivery Device Inspired O2 (1-15=lpm [id number]=%) Sodium 135 L (136-145) mEq/L Potassium 4.0 (3.5-4.5) mEq/L Chloride 103 (98-109) mEq/L Carbon Dioxide 24 (19-29) mEq/L BUN 15 (8-26) mg/dL Creatinine 1.02 (0.72-1.25) mg/dL Est GFR ( Amer) > 60 (> 60) Est GFR (Non-Af Amer) > 60 (> 60) BUN/Creatinine Ratio 15 (6-26) Glucose 124 H (70-99) mg/dL Calculated Osmolality 282 (280-300) Lactic Acid (0.5-2.2) mmol/L Calcium 8.5 L (8.6-10.8) mg/dL Phosphorus 2.8 (2.3-4.7) mg/dL Magnesium 1.8 (1.6-2.6) mg/dL Total Bilirubin 0.3 (0.2-1.2) mg/dL Direct Bilirubin 0.2 (0.0-0.5) mg/dL Indirect Bilirubin 0.1 (0.0-1.2) mg/dL AST 23 (5-34) Units/L ALT 19 (0-55) Units/L Alkaline Phosphatase 79 (38-126) Units/L Troponin I (0-0.03) ng/mL Serum Total Protein 6.5 (6.0-8.3) g/dL Albumin 2.4 L (3.5-5.0) g/dL Globulin 4.1 H (2.4-3.5) g/dL Albumin/Globulin Ratio 0.6 L (1.1-2.2) Urine Color (Yellow) Urine Clarity (Clear) Urine pH (5.0-8.0) pH Units Ur Specific [place] (1.010-1.025) Urine Protein (Neg-Trace) mg/dL Urine Glucose (UA) (Normal) mg/dL Urine Ketones (Negative) mg/dL Urine Blood (Negative) Urine Nitrite (Negative) Urine Bilirubin (Negative) Urine Urobilinogen (Normal) mg/dL Ur Leukocyte Esterase (Negative) Urine Microscopic RBC (0-3) per hpf Urine Microscopic WBC (0-3) per hpf Ur Squamous Epith Cells (None-Few) per lpf Urine Bacteria (None-Few) per hpf Hyaline Casts (None-Few) per lpf Ur Culture Indicated? (NO) Phenytoin (10.0-20.0) mcg/mL 10/29/17 10/29/17 10/29/17 Range/Units 14:30 14:30 14:30 WBC (4.3-11.1) K/mcL RBC (4.19-5.50) M/mcL Hgb (12.9-16.9) g/dL Hct (37.5-50.1) % MCV (83.0-100.0) fL MCH (28.0-33.3) pg MCHC (31.6-35.5) g/dL RDW (11.5-14.5) % Plt Count (140-400) K/mcL MPV (9.4-12.4) fL Immature Gran % (0-4) % Seg Neutrophils % % Lymphocytes % % Monocytes % % Eosinophils % % Basophils % % Neutrophils # (1.6-8.9) K/mcL Lymphocytes # (0.6-4.6) K/mcL Monocytes # (0.0-1.3) K/mcL Eosinophils # (0.0-0.6) K/mcL Basophils # (0.0-0.2) K/mcL PT (9.4-12.1) Seconds INR APTT (26.0-36.0) Seconds Sample Site ABG pH (7.32-7.45) pH Units ABG pCO2 (35-45) mmHg ABG pO2 (85-104) mmHg ABG HCO3 (21-27) mEq/L ABG Total CO2 (20-26) mEq/L ABG O2 Saturation (95-98) % ABG Base Excess (-2 to 3) mEq/L Mariano Test O2 Delivery Device Inspired O2 (1-15=lpm [id number]=%) Sodium (136-145) mEq/L Potassium (3.5-4.5) mEq/L Chloride (98-109) mEq/L Carbon Dioxide (19-29) mEq/L BUN (8-26) mg/dL Creatinine (0.72-1.25) mg/dL Est GFR ( Amer) (> 60) Est GFR (Non-Af Amer) (> 60) BUN/Creatinine Ratio (6-26) Glucose (70-99) mg/dL Calculated Osmolality (280-300) Lactic Acid 1.4 (0.5-2.2) mmol/L Calcium (8.6-10.8) mg/dL Phosphorus (2.3-4.7) mg/dL Magnesium (1.6-2.6) mg/dL Total Bilirubin (0.2-1.2) mg/dL Direct Bilirubin (0.0-0.5) mg/dL Indirect Bilirubin (0.0-1.2) mg/dL AST (5-34) Units/L ALT (0-55) Units/L Alkaline Phosphatase (38-126) Units/L Troponin I 0.03 (0-0.03) ng/mL Serum Total Protein (6.0-8.3) g/dL Albumin (3.5-5.0) g/dL Globulin (2.4-3.5) g/dL Albumin/Globulin Ratio (1.1-2.2) Urine Color (Yellow) Urine Clarity (Clear) Urine pH (5.0-8.0) pH Units Ur Specific [place] (1.010-1.025) Urine Protein (Neg-Trace) mg/dL Urine Glucose (UA) (Normal) mg/dL Urine Ketones (Negative) mg/dL Urine Blood (Negative) Urine Nitrite (Negative) Urine Bilirubin (Negative) Urine Urobilinogen (Normal) mg/dL Ur Leukocyte Esterase (Negative) Urine Microscopic RBC (0-3) per hpf Urine Microscopic WBC (0-3) per hpf Ur Squamous Epith Cells (None-Few) per lpf Urine Bacteria (None-Few) per hpf Hyaline Casts (None-Few) per lpf Ur Culture Indicated? (NO) Phenytoin 13.7 (10.0-20.0) mcg/mL 10/29/17 10/29/17 Range/Units 14:46 15:25 WBC (4.3-11.1) K/mcL RBC (4.19-5.50) M/mcL Hgb (12.9-16.9) g/dL Hct (37.5-50.1) % MCV (83.0-100.0) fL MCH (28.0-33.3) pg MCHC (31.6-35.5) g/dL RDW (11.5-14.5) % Plt Count (140-400) K/mcL MPV (9.4-12.4) fL Immature Gran % (0-4) % Seg Neutrophils % % Lymphocytes % % Monocytes % % Eosinophils % % Basophils % % Neutrophils # (1.6-8.9) K/mcL Lymphocytes # (0.6-4.6) K/mcL Monocytes # (0.0-1.3) K/mcL Eosinophils # (0.0-0.6) K/mcL Basophils # (0.0-0.2) K/mcL PT (9.4-12.1) Seconds INR APTT (26.0-36.0) Seconds Sample Site L Radial ABG pH 7.41 (7.32-7.45) pH Units ABG pCO2 36 (35-45) mmHg ABG pO2 99 (85-104) mmHg ABG HCO3 23 (21-27) mEq/L ABG Total CO2 24 (20-26) mEq/L ABG O2 Saturation 98 (95-98) % ABG Base Excess -1 (-2 to 3) mEq/L Mariano Test N/A O2 Delivery Device Cannula Inspired O2 3.0 (1-15=lpm [id number]=%) Sodium (136-145) mEq/L Potassium (3.5-4.5) mEq/L Chloride (98-109) mEq/L Carbon Dioxide (19-29) mEq/L BUN (8-26) mg/dL Creatinine (0.72-1.25) mg/dL Est GFR ( Amer) (> 60) Est GFR (Non-Af Amer) (> 60) BUN/Creatinine Ratio (6-26) Glucose (70-99) mg/dL Calculated Osmolality (280-300) Lactic Acid (0.5-2.2) mmol/L Calcium (8.6-10.8) mg/dL Phosphorus (2.3-4.7) mg/dL Magnesium (1.6-2.6) mg/dL Total Bilirubin (0.2-1.2) mg/dL Direct Bilirubin (0.0-0.5) mg/dL Indirect Bilirubin (0.0-1.2) mg/dL AST (5-34) Units/L ALT (0-55) Units/L Alkaline Phosphatase (38-126) Units/L Troponin I (0-0.03) ng/mL Serum Total Protein (6.0-8.3) g/dL Albumin (3.5-5.0) g/dL Globulin (2.4-3.5) g/dL Albumin/Globulin Ratio (1.1-2.2) Urine Color Yellow (Yellow) Urine Clarity Cloudy A (Clear) Urine pH 6.5 (5.0-8.0) pH Units Ur Specific [place] 1.015 (1.010-1.025) Urine Protein 100 H (Neg-Trace) mg/dL Urine Glucose (UA) Normal (Normal) mg/dL Urine Ketones Negative (Negative) mg/dL Urine Blood Trace-intact H (Negative) Urine Nitrite Positive A (Negative) Urine Bilirubin Negative (Negative) Urine Urobilinogen Normal (Normal) mg/dL Ur Leukocyte Esterase Negative (Negative) Urine Microscopic RBC 3-5 H (0-3) per hpf Urine Microscopic WBC 3-5 H (0-3) per hpf Ur Squamous Epith Cells None Seen (None-Few) per lpf Urine Bacteria Many H (None-Few) per hpf Hyaline Casts Few (None-Few) per lpf Ur Culture Indicated? YES A (NO) Phenytoin (10.0-20.0) mcg/mL - Radiology Data Radiology results reviewed: Yes I reviewed the patient's radiology results. Impressions Chest X-Ray 10/29/17 14:07 IMPRESSION: Stable mild right pleural effusion and basilar atelectasis versus a pneumonia. D/ / 10/29/2017 15:34:16 Patrick Acevedo MD / isis Interpreting Provider: Patrick Acevedo MD Head CT 10/29/17 14:09 IMPRESSION: 1. No acute intracranial abnormality. 2. Redemonstration of extensive chronic small vessel ischemic disease and large remote left MCA territory infarct. D/ / 10/29/2017 15:35:16 Patrick Acevedo MD / Rachael Jimenez Interpreting Provider: Patrick Acevedo MD - EKG Data EKG attestation: Yes I reviewed and interpreted this EKG. EKG shows normal: sinus rhythm, axis, intervals [place]/QRS: RBBB (Incomplete) T wave inversions noted in: v1, v2, v3, v4 Interpretation: nonspecific ST-T wave changes
[2017-10-29 14:42] LABS: Basophils % 0.5 %; Eosinophils # 0.2 K/mcL (0.0-0.6); Eosinophils % 2.8 %; Hematocrit 37.5 % (37.5-50.1); Hemoglobin 12.7 g/dL (12.9-16.9); Immature Granulocytes % 0.3 % (0-4); Lymphocytes # 0.8 K/mcL (0.6-4.6); Lymphocytes % 12.3 %; Mean Corpuscular HGB Conc 33.9 g/dL (31.6-35.5); Mean Corpuscular Hemoglobin 30.1 pg (28.0-33.3); Mean Corpuscular Volume 88.9 fL (83.0-100.0); Monocytes # 0.7 K/mcL (0.0-1.3); Monocytes % 11.3 %; Neutrophils # 4.5 K/mcL (1.6-8.9); Platelet Count 210 K/mcL (140-400); Red Blood Count 4.22 M/mcL (4.19-5.50); Red Cell Distribution Width 14.5 % (11.5-14.5); Segmented Neutrophils % 72.8 %
[2017-10-29 14:44] LABS: INR 1.3; Prothrombin Time 13.8 Seconds (9.4-12.1)
[2017-10-29 14:49] LABS: ABG Base Excess -1 mEq/L (-2 to 3); ABG HCO3 23 mEq/L (21-27); ABG Oxygen Saturation 98 % (95-98); ABG PCO2 36 mmHg (35-45); ABG PH 7.41 pH Units (7.32-7.45); ABG PO2 99 mmHg (85-104); ABG TCO2 24 mEq/L (20-26)
[2017-10-29 14:59] LABS: Alanine Aminotransferase 19 Units/L (0-55); Albumin 2.4 g/dL (3.5-5.0); Albumin/Globulin Ratio 0.6 (1.1-2.2); Alkaline Phosphatase 79 Units/L (38-126); Aspartate Amino Transferase 23 Units/L (5-34); BUN/Creatinine Ratio 15 (6-26); Bilirubin,Direct 0.2 mg/dL (0.0-0.5); Bilirubin,Indirect 0.1 mg/dL (0.0-1.2); Bilirubin,Total 0.3 mg/dL (0.2-1.2); Blood Urea Nitrogen 15 mg/dL (8-26); Calcium 8.5 mg/dL (8.6-10.8); Carbon Dioxide 24 mEq/L (19-29); Chloride 103 mEq/L (98-109); Globulin 4.1 g/dL (2.4-3.5); Glucose 124 mg/dL (70-99); Magnesium 1.8 mg/dL (1.6-2.6); Osmolality,Calculated 282 (280-300); Phosphorous 2.8 mg/dL (2.3-4.7); Sodium 135 mEq/L (136-145); Total Protein 6.5 g/dL (6.0-8.3); eGFR For African Americans > 60 (> 60); eGFR For Non-African Americans > 60 (> 60)
[2017-10-29 15:50] LABS: Bilirubin,Urine Negative (Negative); Blood,Urine Trace-intact (Negative); Clarity,Urine Cloudy (Clear); Color,Urine Yellow (Yellow); Glucose,Urine (UA) Normal (Normal); Ketones,Urine Negative (Negative); Leukocyte Esterase,Urine Negative (Negative); Nitrite,Urine Positive (Negative); PH,Urine 6.5 pH Units (5.0-8.0); Protein,Urine 100 mg/dL (Neg-Trace); Specific Gravity,Urine 1.015 (1.010-1.025); Urobilinogen,Urine Normal (Normal)
[2017-10-29 15:57] LABS: Bacteria,Urine Many per hpf (None-Few); Hyaline Casts,Urine Few per lpf (None-Few); Squamous Epithelial Cell,Urine None Seen per lpf (None-Few)
[2017-10-29] MEDS ORDERED: cefTRIAXone 1,000 MG in Water for inj. (sterile) 10 ML IVP ONE (16:20)
[2017-10-29] MEDS ORDERED: 0.9 % Sodium Chloride 1,000 ML IVC SCH (16:30)
[2017-10-29] MEDS ORDERED: Naloxone 0.4 MG/ML INJ IVP PRN (18:05)
[2017-10-29] MEDS ORDERED: Ondansetron 4 MG/2 ML VIAL IVP PRN (18:05)
[2017-10-29] MEDS ORDERED: Nitroglycerin 0.4 MG TAB.SUBL SL PRN (18:05)
[2017-10-29] MEDS ORDERED: MOM Conc 10 ML UD.LIQ PO PRN (18:05)
--- NOTE | 2017-10-29 19:14 | Internal Med History&Physical ---
Date of Encounter: 10/29/17 Time of Encounter: 18:55 Assessment and Plan (1) Altered mental status Current visit: Yes Status: Acute Uncertain what his baseline is. Started on Rocephin and IV fluids in emergency room. We will reassess and repeat labs in a.m. Qualifiers: Altered mental status type: somnolence Qualified Code(s): R40.0 - Somnolence (2) Hypothyroidism Current visit: No Status: Chronic TSH was normal at 4.132 on 12/17/2016. In view of weight loss will recheck in a.m. Qualifiers: Hypothyroidism type: unspecified Qualified Code(s): E03.9 - Hypothyroidism , unspecified (3) Hypertension Current visit: No Status: Chronic Continue lisinopril. Qualifiers: Hypertension type: essential hypertension Qualified Code(s): I10 - Essential (primary) hypertension Internal Medicine - H&P: HPI Chief complaint: Fever and altered mental status Admitted From: Emergency Dept Plans for Post Hospital Care: Home History of present illness: Mr. Merchant is a 77 year old male who was brought to emergency room after having a reported fever of 103 last night. Per emergency room records, his reported he had been increasingly weak and congested over the past 24 hours. He is nonverbal because of past CVA. He was evaluated in emergency room and admitted to [facility] floor for ongoing care needs. He could not offer any reliable history. Hospitalized last [facility] May 2017 with diagnoses of UTI. Past Med Surg Social Fam HX - Past Medical History Medical history: arthritis, CVA, seizures, thyroid disease Psychiatric history: no psych history - Past Surgical History Surgical History: orthopedic, other - Social History Smoking Status: Current every day smoker Smokeless Tobacco Status: No Alcohol use: none Drug use: none Internal Medicine - H&P: Meds Aspirin [Adult Low Dose Aspirin EC] 81 mg PO DAILY 01/04/16 [History] Cholecalciferol (Vitamin D3) [Vitamin D3] 5,000 unit PO DAILY 01/04/16 [History] Esomeprazole Magnesium [Nexium] 40 mg PO DAILY 01/04/16 [History] Levothyroxine [Synthroid] 75 mcg PO DAILY 01/04/16 [History] Lisinopril [Zestril] 20 mg PO DAILY 01/04/16 [History] Metoprolol [Lopressor] 100 mg PO BID 01/04/16 [History] Phenytoin Sodium Extended 300 mg PO QAM 01/04/16 [History] Polyethylene Glycol 3350 [MiraLAX Powder Bulk 17.9 Oz] 1 scoop PO DAILY PRN [History] traMADol [Ultram] 50 mg PO BID 01/04/16 [History] Atorvastatin [Lipitor] 40 mg PO HS 08/18/16 [History] Folic Acid 1 mg PO DAILY 08/18/16 [History] Nitroglycerin [Nitrostat] 0.4 mg SL PRN PRN 08/18/16 [History] Rivaroxaban [Xarelto] 20 mg PO QAM 08/18/16 [History] Reglan 5 mg PO HS 05/23/17 [History] 3 Allergy/AdvReac Type Severity Reaction Status Date / Time gabapentin AdvReac Anaphylaxis Verified 05/23/17 22:36 iodine AdvReac Anaphylaxis Verified 05/23/17 22:36 Megestrol AdvReac Anaphylaxis Verified 05/23/17 22:36 All Systems PM: A 10-system review of systems was performed and is negative for pertinent findings except as documented above in the HPI. Review of systems: Obtainable from the patient. His weight has decreased from 68.931 kg May 2017 to 61.235 kg on admission now. Available records showed diagnosis of right leg DVT for which he takes Xarelto. He also has hypothyroidism, past left hemisphere CVA with right hemiparesis, and seizures. - Constitutional Vitals: Temp Pulse Resp BP Pulse Ox 98.5 F 62 16 171/87 100 10/29/17 14:18 10/29/17 16:44 10/29/17 16:44 10/29/17 16:44 10/29/17 16:01 Exam: Gen.: He is a well-developed well-nourished male resting comfortably in bed who appears in no severe distress HEENT: Head is atraumatic and normocephalic. Eyes: EOMI. There is no scleral icterus. Mouth: Mucosa is moist Neck: There is no thyromegaly or adenopathy noted Heart: Regular without murmurs gallops or ectopics Lungs: Has diminished breath sounds diffusely. No wheezes or crackles are heard. Abdomen: Soft and nontender. No masses or guarding are noted. Extremities: He has pallor and equivocal cyanosis of his nailbeds. There is no pitting edema. Dorsalis pedis and posterior tibial pulses are trace palpable bilaterally. Neurologic: mental status: he is awake and makes no attempt to speak. He follows a few commands. Cranial nerves: His facial movements are minimal. His gaze is conjugate. EOMI. He does not protrude his tongue. Motor: He does not move spontaneously. He has significant stiffness on attempted passive range of motion on his right arm. His left arm shows minimal stiffness on PROM. He is not moving much spontaneously. No further neurologic testing is attempted. Skin: Warm and dry Internal Med - H&P Results - Labs CBC & Chem 7: 10/29/17 14:30 10/29/17 14:30
[2017-10-29] MEDS: traMADol 50 MG TABLET PO SCH (20:29)
[2017-10-29] MEDS: 0.9 % Sodium Chloride 1,000 ML IVC SCH (20:31)
[2017-10-30] MEDS: 0.9 % Sodium Chloride 1,000 ML IVC SCH (04:48)
[2017-10-30 06:05] LABS: Basophils % 0.6 %; Eosinophils # 0.3 K/mcL (0.0-0.6); Eosinophils % 4.9 %; Hematocrit 36.2 % (37.5-50.1); Hemoglobin 12.3 g/dL (12.9-16.9); Immature Granulocytes % 0.5 % (0-4); Lymphocytes # 0.9 K/mcL (0.6-4.6); Lymphocytes % 14.6 %; Mean Corpuscular Hemoglobin 29.9 pg (28.0-33.3); Mean Corpuscular Volume 88.1 fL (83.0-100.0); Monocytes # 0.7 K/mcL (0.0-1.3); Monocytes % 10.8 %; Neutrophils # 4.4 K/mcL (1.6-8.9); Platelet Count 204 K/mcL (140-400); Red Blood Count 4.11 M/mcL (4.19-5.50); Red Cell Distribution Width 14.5 % (11.5-14.5); Segmented Neutrophils % 68.6 %
[2017-10-30 06:19] VITALS: BP 171/77
[2017-10-30 06:21] LABS: BUN/Creatinine Ratio 16 (6-26); Blood Urea Nitrogen 12 mg/dL (8-26); Calcium 8.4 mg/dL (8.6-10.8); Carbon Dioxide 19 mEq/L (19-29); Chloride 108 mEq/L (98-109); Chol/HDL Ratio 3.5 (0-4.9); Cholesterol 109 mg/dL (< 200); Glucose 99 mg/dL (70-99); HDL Cholesterol 31 mg/dL (40-59); LDL Cholesterol,Calculated 59 mg/dL (0-99); Osmolality,Calculated 284 (280-300); Potassium 3.5 mEq/L (3.5-4.5); Sodium 137 mEq/L (136-145); Triglycerides 94 mg/dL (< 150); eGFR For African Americans > 60 (> 60); eGFR For Non-African Americans > 60 (> 60)
[2017-10-30 06:41] LABS: Thyroid Stimulating Hormone 3.753 mcIU/mL (0.350-4.840)
[2017-10-30] MEDS: traMADol 50 MG TABLET PO SCH (08:32)
--- NOTE | 2017-10-30 08:48 | Discharge Summary ---
Date of Encounter: 10/30/17 Time of Encounter: 08:35 - Discharge Diagnosis (1) Altered mental status Priority: Primary Status: Resolved Qualifiers: Altered mental status type: somnolence Qualified Code(s): R40.0 - Somnolence (2) Hypothyroidism Priority: Secondary Status: Chronic Qualifiers: Hypothyroidism type: unspecified Qualified Code(s): E03.9 - Hypothyroidism , unspecified (3) Hypertension Priority: Secondary Status: Chronic Qualifiers: Hypertension type: essential hypertension Qualified Code(s): I10 - Essential (primary) hypertension - Discharge Medications Prescriptions: Cefuroxime PO [Ceftin] 500 mg PO Q12HR #6 tablet Lactobacillus [Culturelle] 1 each PO BID #6 cap.sprink Home Medications: Aspirin [Adult Low Dose Aspirin EC] 81 mg PO DAILY 01/04/16 [History] Cholecalciferol (Vitamin D3) [Vitamin D3] 5,000 unit PO DAILY 01/04/16 [History] Esomeprazole Magnesium [Nexium] 40 mg PO DAILY 01/04/16 [History] Levothyroxine [Synthroid] 75 mcg PO DAILY 01/04/16 [History] Lisinopril [Zestril] 20 mg PO DAILY 01/04/16 [History] Metoprolol [Lopressor] 100 mg PO BID 01/04/16 [History] Phenytoin Sodium Extended 300 mg PO QAM 01/04/16 [History] Polyethylene Glycol 3350 [MiraLAX Powder Bulk 17.9 Oz] 1 scoop PO DAILY PRN [History] traMADol [Ultram] 50 mg PO BID 01/04/16 [History] Atorvastatin [Lipitor] 40 mg PO HS 08/18/16 [History] Folic Acid 1 mg PO DAILY 08/18/16 [History] Nitroglycerin [Nitrostat] 0.4 mg SL PRN PRN 08/18/16 [History] Rivaroxaban [Xarelto] 20 mg PO QAM 08/18/16 [History] Reglan 5 mg PO HS 05/23/17 [History] Cefuroxime PO [Ceftin] 500 mg PO Q12HR #6 tablet 10/30/17 [Rx] Lactobacillus [Culturelle] 1 each PO BID #6 cap.sprink 10/30/17 [Rx] Allergies/Adverse Reactions: 3 Allergy/AdvReac Type Severity Reaction Status Date / Time gabapentin AdvReac Anaphylaxis Verified 05/23/17 22:36 iodine AdvReac Anaphylaxis Verified 05/23/17 22:36 Megestrol AdvReac Anaphylaxis Verified 05/23/17 22:36 Date of admission: 10/30/17 03:59 Primary care physician: Daryn Valdez MD - Patient Status Disposition: Home, Self-Care Condition: Fair Overall status at discharge: patient is progressing back to baseline - Discharge Instructions Follow Up With: Daryn Valdez MD [Primary Care Provider] - 1 week - Diet and Activity Activity: resume usual activities as tolerated Diet: advance to your usual diet Hospital course: Mr. Merchant is a 77 year old male who was brought to emergency room after having a reported fever of 103 last night. Per emergency room records, his reported he had been increasingly weak and congested over the past 24 hours. He is nonverbal because of past CVA. He was evaluated in emergency room and admitted to [facility] floor for ongoing care needs. Initial orders were written by the emergency room physician. I saw him on October 29 and performed the history and physical. He was given Rocephin and started on IV fluids in emergency room. When I saw him the following day he was more alert and responsive. Remained afebrile during his hospital stay. Follow-up lab work October 30 showed normal WBC with no left shift present. I felt he was stable for discharge home. He will follow with his PCP within one week. He will continue with antibiotic and probiotic for 3 additional days of discharge. Additional lab work on October 30 showed cholesterol 109, triglycerides 94, LDL 59, HDL 31, and total/ HDL ratio 3.5. TSH was normal at 3.753. - Time Spent with Patient Total time spent providing and/or coordinating discharge services: - Constitutional Vitals: Temp Pulse Resp BP Pulse Ox 98.5 F 67 18 171/77 94 10/30/17 06:18 10/30/17 06:18 10/30/17 06:18 10/30/17 06:18 10/30/17 06:18 - VTE Documentation of Mechanical Device: Graduated compression elastic hosiery
[2017-10-30] MEDS ORDERED: Cholecalciferol (D-3) 1,000 UNIT TABLET PO SCH (09:00)
[2017-10-30] MEDS ORDERED: Aspirin Enteric Coated 81 MG Tablet PO SCH (09:00)
[2017-10-30] MEDS ORDERED: Folic Acid 1 MG TABLET PO SCH (09:00)
[2017-10-30] MEDS ORDERED: Lisinopril 20 MG TABLET PO SCH (09:00)
[2017-10-30] MEDS ORDERED: *HR* Rivaroxaban 10 MG TABLET PO SCH (09:00)
--- NOTE | 2017-10-30 09:40 | Electrocardiograph Report ---
[place] [id number] Test Date: 2017-10-29 Pat Name: Niels Merchant Department: [id number] Room: [facility] Gender: M Cell Plasterer: [id number] : 1940 Requested By: Jabari Garcia Order Number: [id number] Reading MD: Vishal Pink MD Measurements Intervals [place] Rate: 60 P: -78 MN: 142 QRS: 19 QRSD: 110 T: 85 QT: 408 QTc: 410 Interpretive Statements SINUS RHYTHM INCOMPLETE RIGHT BUNDLE BRANCH BLOCK Electronically Signed On 10-30-2017 9:38:52 EST by Vishal Pink MD
--- NOTE | 2017-10-30 09:50 | Physician Discharge Referral ---
Home Health/Hosp Referral Info Transfer to: Home Health Attending Provider: Adrian Provider in Charge Post Discharge: PCP (Daryn Valdez M.D.) - Diagnosis (1) Altered mental status Priority: Primary Status: Resolved (2) Hypothyroidism Priority: Secondary Status: Chronic (3) Hypertension Priority: Secondary Status: Chronic - Respiratory Orders Smoking Cessation: Smoking cessation has been advised. For more information, call the [place] Tobacco Quit Line at 3-581-FOZG-NOW. - Diet/Nutrition Diet/Nutrition Orders: Regular - Services Needed Following services are medically necessary services: Nursing, Home Health Aide, Physical Therapy, Occupational Therapy - Transfer Medications Prescriptions: Cefuroxime PO [Ceftin] 500 mg PO Q12HR #6 tablet Lactobacillus [Culturelle] 1 each PO BID #6 cap.sprink Home Medications: Aspirin [Adult Low Dose Aspirin EC] 81 mg PO DAILY 01/04/16 [History] Cholecalciferol (Vitamin D3) [Vitamin D3] 5,000 unit PO DAILY 01/04/16 [History] Esomeprazole Magnesium [Nexium] 40 mg PO DAILY 01/04/16 [History] Levothyroxine [Synthroid] 75 mcg PO DAILY 01/04/16 [History] Lisinopril [Zestril] 20 mg PO DAILY 01/04/16 [History] Metoprolol [Lopressor] 100 mg PO BID 01/04/16 [History] Phenytoin Sodium Extended 300 mg PO QAM 01/04/16 [History] Polyethylene Glycol 3350 [MiraLAX Powder Bulk 17.9 Oz] 1 scoop PO DAILY PRN [History] traMADol [Ultram] 50 mg PO BID 01/04/16 [History] Atorvastatin [Lipitor] 40 mg PO HS 08/18/16 [History] Folic Acid 1 mg PO DAILY 08/18/16 [History] Nitroglycerin [Nitrostat] 0.4 mg SL PRN PRN 08/18/16 [History] Rivaroxaban [Xarelto] 20 mg PO QAM 08/18/16 [History] Reglan 5 mg PO HS 05/23/17 [History] Cefuroxime PO [Ceftin] 500 mg PO Q12HR #6 tablet 10/30/17 [Rx] Lactobacillus [Culturelle] 1 each PO BID #6 cap.sprink 10/30/17 [Rx] Allergies/Adverse Reactions: 3 Allergy/AdvReac Type Severity Reaction Status Date / Time gabapentin AdvReac Anaphylaxis Verified 05/23/17 22:36 iodine AdvReac Anaphylaxis Verified 05/23/17 22:36 Megestrol AdvReac Anaphylaxis Verified 05/23/17 22:36 Certification: Further, I certify that my clinical findings support that this patient is homebound (i.e. absences from home require considerable and taxing effort and are for medical reasons or yazdanism services or infrequently or short duration when for other reasons) because: Homebound Reason: Leaving home requires considerable and taxing effort due to condition (CVA, near aphasia) Attestation: My signature below is to certify that this patient is under my care and that I, or nurse practitioner, or a physician's assistant professor of life sciences working with me, has a face-to -face encounter with this patient.
== END 2017-10-30 11:51 | disposition home health service (06) | DRG 690 ==
LOC: EMEROOPIK 14:03 → INPPIK 14:03
PROVIDERS: ADMIT Internal Medicine; ATTEND Internal Medicine

== ENCOUNTER 2020-08-08 15:54 | Observation (INO) ==
[2020-08-08 16:54] LABS: Basophils % 0.4 %; Eosinophils # 0.5 K/mcL (0.0-0.6); Eosinophils % 6.6 %; Hematocrit 42.5 % (37.5-50.1); Hemoglobin 14.4 g/dL (12.9-16.9); Immature Granulocytes % 0.5 % (0-4); Lymphocytes # 1.5 K/mcL (0.6-4.6); Lymphocytes % 18.3 %; Mean Corpuscular HGB Conc 33.9 g/dL (31.6-35.5); Mean Corpuscular Hemoglobin 31.1 pg (28.0-33.3); Mean Corpuscular Volume 91.8 fL (83.0-100.0); Mean Platelet Volume 9.2 fL (9.4-12.4); Monocytes # 0.7 K/mcL (0.0-1.3); Monocytes % 9.1 %; Neutrophils # 5.2 K/mcL (1.6-8.9); Platelet Count 325 K/mcL (140-400); Red Blood Count 4.63 M/mcL (4.19-5.50); Red Cell Distribution Width 14.2 % (11.5-14.5); Segmented Neutrophils % 65.1 %
[2020-08-08] MEDS ORDERED: 0.9 % Sodium Chloride 1,000 ML IVC SCH (17:00)
[2020-08-08] MEDS ORDERED: Naloxone 0.4 MG/ML INJ IVP PRN (17:03)
[2020-08-08] MEDS ORDERED: Ondansetron ODT 4 MG TAB.RAPDIS SL PRN (17:03)
[2020-08-08] MEDS ORDERED: SODIUM CHLORIDE/NAHCO3/KCL/PEG 4,000 ML SOLN.RECON PO ONE (17:06)
[2020-08-08 17:14] LABS: Alanine Aminotransferase 13 Units/L (7-52); Albumin 2.6 g/dL (3.5-5.7); Albumin/Globulin Ratio 0.6 (1.1-2.2); Alkaline Phosphatase 107 Units/L (34-104); Aspartate Amino Transferase 17 Units/L (13-39); BUN/Creatinine Ratio 17 (6-26); Bilirubin,Indirect 0.3 mg/dL (0.0-1.0); Bilirubin,Total 0.3 mg/dL (0.3-1.0); Blood Urea Nitrogen 15 mg/dL (8-23); Calcium 8.2 mg/dL (8.6-10.3); Carbon Dioxide 28 mEq/L (23-29); Chloride 99 mEq/L (98-107); Globulin 4.5 g/dL (2.4-3.5); Glucose 122 mg/dL (70-105); Osmolality,Calculated 278 (280-300); Potassium 4.2 mEq/L (3.5-5.1); Sodium 133 mEq/L (136-145); Total Protein 7.1 g/dL (6.4-8.9); eGFR For African Americans > 60 (> 60); eGFR For Non-African Americans > 60 (> 60)
[2020-08-08] MEDS: Ringers Solution, Lactated 1,000 ML IVC SCH (17:45)
[2020-08-08] MEDS ORDERED: hydrALAZINE 10 MG TABLET PO ONE (20:49)
[2020-08-08] MEDS ORDERED: SODIUM CHLORIDE/NAHCO3/KCL/PEG 4,000 ML SOLN.RECON GTUBE ONE ×2 (21:15→22:15)
[2020-08-08] MEDS: Metoprolol 100 MG TABLET PO SCH (22:38)
[2020-08-09] MEDS: Ringers Solution, Lactated 1,000 ML IVC SCH (05:37)
[2020-08-09 05:43] LABS: Basophils % 0.4 %; Eosinophils # 0.6 K/mcL (0.0-0.6); Hemoglobin 14.1 g/dL (12.9-16.9); Immature Granulocytes % 0.4 % (0-4); Lymphocytes # 1.6 K/mcL (0.6-4.6); Lymphocytes % 20.1 %; Mean Corpuscular HGB Conc 32.8 g/dL (31.6-35.5); Mean Corpuscular Hemoglobin 30.7 pg (28.0-33.3); Mean Corpuscular Volume 93.7 fL (83.0-100.0); Mean Platelet Volume 9.4 fL (9.4-12.4); Monocytes # 0.9 K/mcL (0.0-1.3); Monocytes % 11.1 %; Neutrophils # 4.8 K/mcL (1.6-8.9); Platelet Count 270 K/mcL (140-400); Red Blood Count 4.59 M/mcL (4.19-5.50); Red Cell Distribution Width 14.2 % (11.5-14.5); White Blood Count 7.8 K/mcL (4.3-11.1)
[2020-08-09] MEDS ORDERED: cloNIDine HCL 0.1 MG TABLET PO PRN (08:21)
[2020-08-09] MEDS ORDERED: Levalbuterol Neb 0.63 MG/3 ML IH PRN (08:29)
[2020-08-09] MEDS ORDERED: polyethylene glycoL 3350 17 GM POWD.PACK GTUBE SCH (09:00)
[2020-08-09] MEDS ORDERED: Aspirin Enteric Coated 81 MG Tablet PO SCH (09:00)
[2020-08-09] MEDS ORDERED: Cholecalciferol (D-3) 1,000 UNIT (25MCG) TABLET PO SCH (09:00)
[2020-08-09] MEDS ORDERED: Folic Acid 1 MG TABLET PO SCH (09:00)
[2020-08-09] MEDS ORDERED: lisinopriL 20 MG TABLET PO SCH (09:00)
[2020-08-09] MEDS ORDERED: *HR* Rivaroxaban 10 MG TABLET PO SCH (09:00)
[2020-08-09] MEDS: Metoprolol 100 MG TABLET PO SCH (09:13)
[2020-08-09 09:17] LABS: BUN/Creatinine Ratio 18 (6-26); Blood Urea Nitrogen 13 mg/dL (8-23); Calcium 8.3 mg/dL (8.6-10.3); Carbon Dioxide 21 mEq/L (23-29); Chloride 102 mEq/L (98-107); Glucose 92 mg/dL (70-105); Osmolality,Calculated 278 (280-300); Potassium 4.1 mEq/L (3.5-5.1); Sodium 134 mEq/L (136-145); eGFR For African Americans > 60 (> 60); eGFR For Non-African Americans > 60 (> 60)
[2020-08-09] MEDS ORDERED: Albuterol Neb 0.63 MG/3 ML VIAL IH SCH (10:00)
[2020-08-09 12:00] VITALS: BP 162/78
== END 2020-08-09 18:01 | disposition home health service (06) ==
LOC: EMEROOPIK 15:54 → INPPIK 15:54
PROVIDERS: ADMIT Family Medicine; ATTEND Family Medicine